=== PATIENT | female | born 1950 | race Caucasian/White ===

== ENCOUNTER → 2017-06-02 | Outpatient (CLI) | payer OTHER, BC ==
[~2017-06-02] VITALS: Ht 160 cm; Wt 54.7 kg
[~2017-06-02] MED LIST: ABILIFY 2 MG2 M1 PO; ASPIR 8181 MG PO; ATIVAN1 MG PO; BENZONATATE200 MG PO; BUSPIRONE HCL10 MG PO; BYSTOLIC 5 MG5 M1 PO; CRESTOR10 MG PO; DIPROLENE AF 0.15 GM TP; EFFEXOR XR150 MG PO; FISH OIL 1,001000 M2 PO; KLOR-CON 1010 MEQ PO; METFORMIN HCL500 MG PO; NEPHROCAPS SOFT1 CAP PO; NORCO 5-325 TA1 EACH PO; NYSTATIN 1100000 U/M SW&SWALLOW; PREDNISONE 10 M10 MG PO; PROAIR HFA8.5 GM; PROLIA60 MG/1 ML SQ; SEROQUEL300 MG PO; SINGULAIR 10 MG10 M1 PO; SPIRIVA INH; SUPER CALCIUM600 MG PO; UNICOMPLEX M TA1 TA1 PO; VITAMIN D2000 UNIT PO; XYZAL5 MG PO; ZANTAC300 MG PO
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
[2017-06-02 10:03] VITALS: BP 134/68
== END ==
LOC: PAIN 06:50
DX: M54.16 Radiculopathy, lumbar region (principal)